=== PATIENT | male | born 1960 ===

== ENCOUNTER 2017-08-18 10:48 | Emergency (ER) | payer OTHER ==
[~2017-08-18] VITALS: Ht 167.6 cm; Wt 54.4 kg
== END 2017-08-18 19:14 | disposition home or self-care (01) ==
LOC: ER 10:48
DX: K52.9 Noninfective gastroenteritis and colitis, unspecified (principal)

== ENCOUNTER 2019-04-16 17:04 | Emergency (ER) | payer OTHER ==
[~2019-04-16] VITALS: Ht 167.6 cm; Wt 54.4 kg
== END 2019-04-16 21:00 | disposition home or self-care (01) ==
LOC: ER 17:04
DX: S61.227A Laceration with foreign body of left little finger without damage to nail, initial encounter (principal); W45.8XXA Other foreign body or object entering through skin, initial encounter; Y93.89 Activity, other specified; Y92.69 Other specified industrial and construction area as the place of occurrence of the external cause; Y99.8 Other external cause status